=== PATIENT | female | born 1955 | race Hispanic/Latino ===

== ENCOUNTER 2018-06-07 07:05 | Day surgery (SDC) | payer MEDICARE ==
[2018-06-07 07:19] VITALS: BMI 38.9
--- NOTE | 2018-06-07 10:22 | CP.SDSHP ---
Same Day Surgery H & P - History Proposed Procedure: colonsocopy Pre-Op Diagnosis: constip, change bowels - Previous Medical/Surgical History Cardiac: Hypertension Neuro: TIA/CVA Comments: breast cancer - Allergies Allergies: Allergies moxifloxacin [From Avelox] Allergy (Verified 06/07/18 07:13) RASH metoprolol Adverse Reaction (Verified 06/07/18 07:13) DIZZINESS Penicillins Adverse Reaction (Verified 06/07/18 07:13) RASH - Physical Exam Vital Signs: Vital Signs 06/07/18 07:20 Temperature 97.8 F Pulse Rate 74 Respiratory 19 Rate Blood Pressure 139/63 O2 Sat by Pulse 97 Oximetry Mental Status: Alert & Oriented x3 Neuro: WNL Heart: WNL Lungs: WNL GI: WNL - {Optional Preform as Required} Abdomen: WNL - Impression Impression: constipation Pt. Evaluated Today:Candidate for Anesthesia & Procedure: Yes - Date & Time Date: 06/07/18 Time: 10:00 Short Stay Discharge - Short Stay Discharge Admitting Diagnosis/Reason for Visit: CONSTIPATION Disposition: HOME/ ROUTINE
[2018-06-07] MEDS ORDERED: Lactated Ringer's 1,000 ML IV ONE (10:25)
[2018-06-07] MEDS ORDERED: Propofol 10 mg/ml Inj (20 ML) ONE (10:32)
[2018-06-07 11:16] VITALS: TEMP 97.7
[2018-06-07 12:11] VITALS: BP 125/55; PULSE 66; RESP 15; O2SAT 95
== END 2018-06-07 11:48 | disposition home or self-care (01) ==
LOC: C.ENDO 07:05
PROVIDERS: ATTEND Internal Medicine Gastroenterology
DX: K59.00 Constipation, unspecified (principal); K57.30 Diverticulosis of large intestine without perforation or abscess without bleeding; I10 Essential (primary) hypertension; Z86.73 Personal history of transient ischemic attack (TIA), and cerebral infarction without residual deficits; Z88.0 Allergy status to penicillin
CPT/HCPCS: 45378; 82948; J2704; J7120